=== PATIENT | male | born 1985 | race Caucasian/White ===

== ENCOUNTER 2022-09-09 15:11 | Emergency (ER) | payer OTHER, SELFPAY ==
--- NOTE | 2022-09-09 15:24 | ED.URI ---
HPI - URI/Sore Throat General Chief Complaint: Upper Respiratory Infection Stated Complaint: Sore Throat,Headache,Fatigue,Cough Time Seen by Provider: 09/09/22 15:35 Source: patient and RN notes reviewed Mode of arrival: ambulatory Limitations: no limitations History of Present Illness HPI Narrative: 37-year-old male presents with concern for 3-4 day history of nasal congestion, sore throat, headache, cough. He reports his has similar symptoms, she has been sick for 11 days and got an antibiotic today. He thinks he needs an antibiotic. Reports he has taken DayQuil and NyQuil intermittently. MD elicited complaint: cough and sore throat Related Data Home Medications Medication Instructions Recorded Confirmed fluoxetine 40 mg capsule 40 mg PO DAILY 09/09/22 09/09/22 Allergies Allergy/AdvReac Type Severity Reaction Status Date / Time No Known Allergies Allergy Verified 09/09/22 15:20 Review of Systems Review of Systems: CONSTITUTIONAL: Report malaise, fatigue. Denies chills, sweats, or fever. EYES: Denies visual changes, redness, or discharge. ENT: Reports rhinorrhea, congestion, sore throat. Denies sinus pain, otalgia CARDIOVASCULAR: Denies chest pain, palpitations, or edema. RESPIRATORY: Reports cough. Denies dyspnea. GASTROINTESTINAL: Denies abdominal pain, nausea, vomiting, diarrhea SKIN: Denies rash or itching. MUSCULOSKELETAL: Denies myalgia. NEUROLOGIC: Denies headache. All systems reviewed & are unremarkable except as noted in HPI and below PMFSH Comments At time of signature, agree with nursing past medical, surgical, social and family history. There is no relevant family history pertinent to the presenting complaint Exam Narrative: GENERAL: Nontoxic-appearing and in no acute distress. HEAD: Normocephalic EYES: PERRLA, conjunctivae clear ENT: Nares clear, turbinates edematous and erythematous, clear discharge. Mucous membranes moist. TM pearly trejo with dull light reflex bilaterally; no tragal tenderness. Oropharynx not erythematous without lesions. Tonsils not enlarged and without exudate, no drooling, no hoarseness, no trismus, uvula midline. NECK: Supple. No lymphadenopathy CHEST: Clear to auscultation, breath sounds equal. No wheezing, rhonchi, rales, or stridor. No respiratory distress, speaks in full sentences. HEART: Regular rate and rhythm. No murmur heard. SKIN: Warm, dry, no rash. NEURO: Alert and oriented x3. PSYCH: Normal mood and affect Course Course Emergency Course: Patient is aware of diagnosis, understands and agrees to treatment plan. Anticipatory guidance given. Patient agrees to follow-up as directed and is aware of reasons to seek care at the emergency department. Portions of this record may have been created with voice recognition software Level of Care: Express Care Visit Vital Signs Vital signs: Reviewed. MDM - URI/Sore Throat MDM Narrative Medical decision making narrative: Differential diagnosis considered: Dumont virus, strep pharyngitis, allergic rhinitis, upper respiratory tract infection, sinusitis, rhinosinusitis, nasopharyngitis. viral pharyngitis, otitis media, otitis externa, pneumonia, bronchitis, viral cough syndrome, viral syndrome, and influenza. Exam findings show no acute concerns or changes; patient is non-toxic appearing and is in no distress. Patient is appropriate for outpatient treatment and follow-up. Lab Data Attestation: I reviewed the patient's lab results. Critical Care Time Critical Care Time Critical Care Time: No Discharge Plan Discharge Clinical Impression: Upper respiratory infection with cough and congestion Patient Disposition: Home, Self-Care Condition: Stable Instructions: Upper Respiratory Infection (ED) Additional Instructions: Your rapid strep swab was negative today at [facility]. A throat culture will be sent to the laboratory for further testing. If the test is positive, you will receive a phone call with
[2022-09-09 15:27] VITALS: BP 137/100; PULSE 87; RESP 16; TEMP 36.4; O2SAT 99
== END 2022-09-09 16:00 | disposition home or self-care (01) ==
PROVIDERS: Emergency Provider Nurse Practitioner
DX: J06.9 Acute upper respiratory infection, unspecified (principal)
CPT/HCPCS: 87081; 87880; 99203; G0463

== ENCOUNTER 2025-06-10 19:18 | Emergency (ER) | payer BC, SELFPAY ==
--- NOTE | ~2025-06-10 | XR_ITS ---
EXAMINATION: XR hand LT min 3V DATE: 06/10/2025 19:47 INDICATION: Laceration to third and fourth fingers. TECHNIQUE: Views of left hand were obtained. COMPARISON: None. FINDINGS: Severe soft tissue laceration of the third and fourth fingers are noted. Fracture of the distal phalanx of third finger. No other fractures are visible, although visualization is limited by extraneous artifacts. IMPRESSION: 1. Fracture distal phalanx third finger. 2. Significant soft tissue trauma to the third and fourth fingers. Reviewed, dictated and finalized at location T. CAL TECHNOLOGIST HEMATOLOGY
--- OUTSIDE RECORDS SUMMARY | 2025-06-10 19:21 | XMS_ITS | Clinical Summary ---
Author Organization [facility] Address [address] [place] [address] Support Name Relationship Address Phone Tammi Drake ([facility]ly [facility]) Spouse [address] [place] [address] [address] Prov[address] Care [address] Shaft And Steering Post Repairer Name Role Phone Jannet Escobedo MD, Jose Mackeyodore Primary Care Provider Source Comments [facility],non-owned Affiliates and Associated Physician Practices is amultiple site organization consisting of ambulatory clinics and hospital sitesin [place], [place], [place] and [place]. This disclosure is being madepursuant to the Care Everywhere program and may not contain all information available regarding this patient. Last updated 18.[facility] Allergies No known active allergies Medications * This document contains information received from the source organization and may not represent a complete record from that organization. * Be aware that medications may not be up to date on this document. Alwaysverify current medications with the patient. albuterol HFA (Proventil; Ventolin; Proair) 108 (90 Base) MCG/ACT inhalerIndicati ons:Asthma Inhale 2 (two) puffs by mouth every 6 hours as needed for Shortness of Breath, Wheezing or Cough Reasons: Asthma 48 g 4 4 Active mometasone (Elocon) 0.1 % cream Apply to affected area once daily 45 g 4 Active Fluticasone Furoate (Arnuity Ellipta) 50 MCG/ACT AEPB INHALE 1 PUFF BY MOUTH DAILY 90 Each 2 4 Active FLUoxetine (PROzac) 40 MG capsule TAKE 1 CAPSULE BY MOUTH DAILY 90 capsule 2 5 Active buPROPion XL 24hr (Wellbutrin-XL) 300 MG tabletIndicatio ns:Moderate episode of recurrent major depressive disorder (HCC),Generaliz ed anxiety disorder,Inatte ntion Take 1 (one) tablet by mouth once daily 90 tablet 1 5 Active buPROPion XL 24hr (Wellbutrin-XL) 150 MG tabletIndicatio ns:Moderate episode of recurrent major depressive disorder (HCC),Generaliz ed anxiety disorder Take 1 (one) tablet by mouth once daily 30 tablet 1 5 06/02/20 25 Discontinu ed(Reorder ) Active Problems Problem Noted Date Diagnosed Date 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 Silva Routine general medical exam ination at a health care facility 03/28/2023 Assessment & Plan (03/26/2024 9:50 AM CDT): - The patient is advised to begin progressive daily aerobic exercise program, follow a low fat, low cholesterol diet, continue current medications, continue current healthy lifestyle patterns and return for routine annual checkups. Assessment & Plan (03/28/2023 8:40 AM CDT): - The patient is advised to begin progressive daily aerobic exercise program, follow a low fat, low cholesterol diet, continue current medications, continue current healthy lifestyle patterns and return for routine annual checkups. Alcohol use disorder, moderate, in sustained rem ission 06/27/2017 Assessment & Plan (10/23/2023 9:25 AM CDT): In remission, doing well - Continue to avoid EtOH Assessment & Plan (03/28/2023 8:42 AM CDT): Applaud continued cessation Assessment & Plan (03/29/2022 11:23 AM CDT): Controlled, - Applaud continued cessation - AA Assessment & Plan (03/31/2021 3:01 PM CDT): Controlled, going to AA, Feeling good. - Ok to stop Naltrexone if pt wishes (pt request). Rx sent in just in case pt wishes to restart. - AA Anxiety disorder 06/27/2017 Assessment & Plan (06/02/2025 9:05 AM DENTAL TECHNICIAN INSTRUCTOR): Stable Continue prozac 40 mg qd Tolerating bupropion w/o s/e - will increase to 300 mg qd Encourage well-balanced diet, adequate sleep, stress reduction, relaxation techniques, and getting regular physical exercise. Orders: buPROPion XL 24hr (Wellbutrin-XL) 300 MG tablet; Take 1 (one) tablet by mouth once daily Assessment & Plan (04/16/2025 9:07 AM CDT): Uncontrolled. Did not see benefit with increase of prozac to 60 mg daily. Has been taking prozac 40 mg qd, will add bupropion 150 mg daily Encourage well-balanced diet, adequate sleep, stress reduction, relaxation techniques, and getting regular physical exercise. Orders: buPROPion XL 24hr (Wellbutrin-XL) 150 MG tablet; Take 1 (one) tablet by mouth once daily Assessment & Plan (03/26/2024 9:51 AM CDT): Uncontrolled - Increase Prozac Assessment & Plan (03/28/2023 8:42 AM CDT): Controlled - Continue Prozac Assessment & Plan (03/29/2022 11:22 AM CDT): Stable - Continue Prozac - Offered wellbutrin for sexual dysfx Asthma Assessment & Plan (04/16/2025 9:07 AM CDT): Has been controlled. Not taking Arnuity Continue albuterol PRN Monitor and notify for new or worsening resp symptoms Assessment & Plan (03/26/2024 9:51 AM CDT): Uncontrolled - Albuterol PRN - Arnuity Ellipta QD Assessment & Plan (03/28/2023 8:42 AM CDT): Stable - Albuterol Assessment & Plan (08/08/2022 4:27 PM DENTAL TECHNICIAN INSTRUCTOR): albuterol Assessment & Plan (03/29/2022 11:23 AM CDT): Stable - albuterol PRN Assessment & Plan (03/31/2021 3:01 PM CDT): Controlled - Albuterol PRN Recurrent major depressive disorder, in full rem ission Assessment & Plan (04/16/2025 9:07 AM CDT): Uncontrolled. Did not see benefit with increase of prozac to 60 mg daily. Has been taking prozac 40 mg qd, will add bupropion 150 mg daily Encourage well-balanced diet, adequate sleep, stress reduction, relaxation techniques, and getting regular physical exercise. Orders: buPROPion XL 24hr (Wellbutrin-XL) 150 MG tablet; Take 1 (one) tablet by mouth once daily Assessment & Plan (03/26/2024 9:51 AM CDT): Uncontrolled - Increase Prozac Assessment & Plan (03/28/2023 8:42 AM CDT): Controlled - Continue Prozac Assessment & Plan (08/08/2022 4:27 PM DENTAL TECHNICIAN INSTRUCTOR): Pt on Prozac Assessment & Plan (03/29/2022 11:23 AM CDT): Stable - Continue Prozac - Offered wellbutrin for sexual dysfx Assessment & Plan (03/31/2021 3:01 PM CDT): Controlled - Continue Prozac 40mg QD - Continue AA Resolved Problems Problem Noted Date Diagnosed Date Resolved Date Chest tightness 10/23/2023 03/26/2024 Assessment & Plan (10/23/2023 9:25 AM CDT): Suspect asthma, but need to r/o other causes (obstructive causes) - Albuterol - CXR - Prednisone if XR negative Anxiety 08/14/2018 Bipolar 1 disorder Overview (03/31/2021): Hx in doubt. No breakthrough w/ Prozac Encounters * This document contains information received from the source organization and may not represent a complete record from that organization. Date Type Department Care Team Description 06/03/2025 Results Follow-Up [address] [address] Nati Syed APRN-CNP 06/02/2025 8:40 AM DENTAL TECHNICIAN INSTRUCTOR Office Visit [address] [address] Nati Syed APRN-CNP Moderate episode of recurrent major depressive disorder (HCC) (Primary Dx); Generalized anxiety disorder; Inattention 05/01/2025 Travel 04/16/2025 8:20 AM CDT Office Visit [address] [address] Nati Syed APRN-CNP Routine general medical examination at health care facility (Primary Dx); Moderate episode of recurrent major depressive disorder (HCC); Generalized anxiety disorder; Mild intermittent asthma without complication (HCC); Inattention; Hypertriglyceridemia; MSH6-related Mcguire syndrome (HNPCC5) from Last 3 Months Immunizations Immunization Administration Dates Next Due Dedicated Devices primary monoval ent 12+ yr 0.3mL Purple cap 06/26/2021,09/08/2020,08/18/2020 DTP 01/01/1992, 8,1986,1986,1986 INFLUENZA VACCINE, QUADR. (F LUZONE; FLULAVAL; FLUARIX; AFLURIA QUADRIVALENT; 6MO+), 0.5 ML (IIV4) 03/31/2021 MMR 01/01/1992,09/16/1987 PNEUMOCOCCAL PCV20 CONJ VAC IM 03/29/2022,2021 PNEUMOCOCCAL PPSV23 11/06/2018 POLIO OPV 01/01/1992, 8,1986,1985 TDAP (7yrs+) 11/06/2018 Family History Medical History Relation Name Comments Alcohol abuse Father Cancer - Breast Maternal Aunt Cancer - Breast Maternal Cousin 1 Other - Genetic Maternal Cousin 1 Other - Gastrointestinal Maternal Cousin 2 rectal Other - Genetic Maternal Cousin 2 Cancer - Bladder Maternal Grandfather Cancer - Renal Maternal Grandfather Other - Genetic Maternal Grandfather CAD (Coronary Artery Disease) Maternal Grandmother Other - Genetic Mother MSH6 deletio n Alcohol abuse Paternal Grandfather Cancer - Other Paternal Grandmother Alcohol abuse Sister Other - Genetic Sister MSH6 Negative Family History Neg Hx Relation Name Status Comments Brother Alive Father Alive Maternal Aunt Alive Maternal Cousin 1 Alive Maternal Cousin 2 Alive Maternal Grandfather Maternal Grandmother Mother Alive Paternal Grandfather Paternal Grandmother Sister Alive Social History Tobacco Use Types Packs/Day Years Used Date Smoking Tobacco: Former Cigarettes Smokeless Tobacco: Never Alcohol Use Standard Drinks/Week Comments Not Currently 0 (1 standard drink = 0.6 oz pur e alcohol) PHQ-2 Answer Date Recorded Patient Health Questionnaire-2 Score 2 06/02/2025 Sex and Gender Information Value Date Recorded Sex Assigned at Not on file Legal Sex Male 6:17 AM DENTAL TECHNICIAN INSTRUCTOR Gender Identity Not on file Sexual Orientation Straight 11/26/2021 1: 27 PM CDT Occupation Industry Job Start Date Job End Date sales Not on file Not on file Not on file Last Filed Vital Signs Vital Sign Reading Time Taken Comments Blood Pressure 122/78 06/02/2025 8:41 AM DENTAL TECHNICIAN INSTRUCTOR Pulse 76 06/02/2025 8:41 AM DENTAL TECHNICIAN INSTRUCTOR Temperature 36.1 C (97 F) 12/16/2024 7:11 AM CDT Respiratory Rate 19 12/16/2024 8:35 AM CDT Oxygen Saturation 97% 06/02/2025 8:41 AM DENTAL TECHNICIAN INSTRUCTOR Inhaled Oxygen Concentration - - Weight 96.3 kg (212 lb 6.4 oz) 06/02/2025 8:41 A M DENTAL TECHNICIAN INSTRUCTOR Height 182.9 cm (6') 06/02/2025 8:41 AM DENTAL TECHNICIAN INSTRUCTOR Body Mass Index 28.81 06/02/2025 8:41 AM DENTAL TECHNICIAN INSTRUCTOR Plan of Treatment Upcoming Encounters Date Type Department Care Team (Late st Contact Info) Description 09/02/2025 9:40 AM DENTAL TECHNICIAN INSTRUCTOR Office Visit [facility] - Family Medicine [address] [place] [address] Nati Syed, LABORATORY INSPECTOR-MERCHANDISE BUYER [address] [place] [address] Health Maintenance Due Date Last Done Comments COLOGUARD (AGES 45-75) - COLON CA SCREENING 1986 CT COLONOGRAPHY - COLON CA SCREENING 1986 FIT - COLON CA SCREENING 1986 FLEX SIG - COLON CA SCREENING 1986 HEPATITIS B VACCINE (1 of 3 - 19+ 3-dose series) 2005 HPV VACCINE (1 - 3-dose SCDM series) 2013 COVID-19 VACCINE ( season) 2025 06/26/2021, 09/08/2020, 08/18/2020 INFLUENZA VACCINE (#1) 2025 03/31/2021 EGD SURVEILLANCE 10/23/2025 10/24/2023, 10/24/2023 COLON MONITORING 12/16/2025 12/16/2024, 08/2024, 12/16/2024, Additional history exists Colorectal Cancer Screening 12/16/2025 DTAP/TDAP/TD VACCINES (7 - Td or Tdap) 11/06/2028 11/06/2018, 01/01/1992, 09/16/1987, Additional history exists COLONOSCOPY - COLON CA SCREENING 12/16/2034 12/16/2024, 12/16/2024, 12/16/2024, Additional history exists ZOSTER VACCINE (1 of 2) 2036 HIV SCREENING Completed 05/09/2017 PNEUMOCOCCAL VACCINE Completed 03/29/2022, 03/29/2022, 11/06/2018 HEPATITIS C SCREENING Completed 03/28/2023 DEPRESSION SCREENING Completed 12/12/2024, 10/23/2023, 10/23/2023, Additional history exists HIB VACCINE Aged Out No longer eligi ble based on patient's age to complete this topic MENINGOCOCCAL (Group B) VACCINE SHARED DECISION-MAKING Aged Out No longer eligible based on patient's age to complete this topic MENINGOCOCCAL GROUPS A/C/Y/W VACCINE Aged Out No longer eligible based on patient's age to complete this topic Procedures Procedure Name Priority Date/Time Associated Diagnosis Comments CBC W AUTO DIFFERENTIAL Routine 06/02/2025 9:06 AM DENTAL TECHNICIAN INSTRUCTOR Hypertriglyceridemi a TSH REFLEX FREE T4 Routine 06/02/2025 9: 06 AM DENTAL TECHNICIAN INSTRUCTOR Hypertriglyceridemi a HEMOGLOBIN A1C Routine 06/02/2025 9:06 AM DENTAL TECHNICIAN INSTRUCTOR Hypertriglyceridemi a LIPID PROFILE Routine 06/02/2025 9:06 AM DENTAL TECHNICIAN INSTRUCTOR Hypertriglyceridemi a COMPREHENSIVE METABOLIC PANEL Routine 06/02/2025 9:06 AM DENTAL TECHNICIAN INSTRUCTOR Hypertriglyceridemi a ENDOSCOPY, COLON, DIAGNOSTIC Routine 12/16/2024 7:05 AM CDT Mcguire syndrome EGD Routine 10/24/2023 12:43 PM CDT Mcguire syndrome HEPATITIS C ANTIBODY Routine 03/28/2023 8:51 AM CDT Screening examination for infectious disease HIV-1 HIV-2 ANTIGEN/ANTIBODY W RFLX Routine 05/09/2017 11:05 AM CDT Abscess, gluteal, left from Last 3 Months or Most Recently Relevant to Health Maintenance Results * TSH REFLEX FREE T4 (06/02/2025 9:06 AM DENTAL TECHNICIAN INSTRUCTOR) TSH 1.255 0.350 - 4.940 uIU/mL [facility] ACCOUNT BILL Blood BLOOD SPECIMEN / Unknown 06/02/2025 9:06 AM DENTAL TECHNICIAN INSTRUCTOR 06/02/2025 Narrative [facility] ACCOUNT BILL - 06/02/2025 5:09 PM DENTAL TECHNICIAN INSTRUCTOR Performed at: [address] [place] [id number] Director Of Product Design: Marquis Azul [address], Phone: [phone] us Nati Syed LABORATORY INSPECTOR-MERCHANDISE BUYER LAB - CHEMISTRY ORDERA BLES Final Result [facility] ACCOUNT BILL [address] [place] [address] * HEMOGLOBIN A1C (06/02/2025 9:06 AM DENTAL TECHNICIAN INSTRUCTOR) [facility] Hemoglobin A1c 5.4 <5.7 % [facility] ACCOUNT BILL Comment: AVERAGE GLUCOSE MG/DL BLOOD 108 mg/dL HbA1c Interpretation: Normal: < 5.7% Pre-diabetes: 5.7-6.4% Diabetes: Equal to or greater than 6.5% Test results diagnostic of diabetes should be repeated for c onfirmation. Treatment target values recommended by ADA and other clinica l organizations should be used to evaluate metabolic control in patients. This test should not replace glucose testing for patients wi th Type 1 diabetes, pediatric patients, or women. Falsely low HbA1c results may be observed in patients with c linical conditions that shorten erythrocyte life span or dec rease mean erythrocyte age such as the presence of unstable hemoglobin variants, elevated hemoglobin F level or other ca uses of hemolytic anemia. HbA1c may not accurately reflect glycemic control when clinical conditions that affect erythr ocyte survival are present. Severe Iron deficiency anemia m ay yield falsely high results. Hemoglobin A1c assay should not be used to diagnose or monitor diabetes in patients with malignancy, recent blood transfusion, chronic kidney or essie er disease. This method may yield falsely low results when hemoglobin (HbF) exceeds 5% in the specimen. The CellARidenity assay for the measurement of HbA1c is a [facility] Glycohemoglobin Standardization Program (NGSP) certi fied method. Blood BLOOD SPECIMEN / Unknown 06/02/2025 9:06 AM DENTAL TECHNICIAN INSTRUCTOR 06/02/2025 Narrative [facility] ACCOUNT BILL - 06/02/2025 5:09 PM DENTAL TECHNICIAN INSTRUCTOR Performed at: 01 - [facility] [address] [place], [place] [id number] Director Of Product Design: Marquis Azul Dr, Phone: [phone] us Nati Chambers Kunal LABORATORY INSPECTOR-MERCHANDISE BUYER LAB - CHEMISTRY ORDERA BLES Final Result [facility] ACCOUNT BILL [address] [place] [address] * CBC WITH DIFFERENTIAL (06/02/2025 9:06 AM DENTAL TECHNICIAN INSTRUCTOR) WBC 7.4 4.0 - 10.7 x10E9/L [facility] ACCOUNT BILL RBC 4.89 4.30 - 5.80 x10E12/L [facility] ACCOUNT BILL Hemoglobin 14.6 13.3 - 17.5 g/dL [facility] ACCOUNT BILL Hematocrit 42.6 38.7 - 51.1 % [facility] ACCOUNT BILL MCV 87.1 80.0 - 98.0 fL [facility] ACCOUNT BILL MCH 29.9 26.7 - 33.6 pg [facility] ACCOUNT BILL MCHC 34.3 31.7 - 36.3 g/dL [facility] ACCOUNT BILL RDW 12.5 11.3 - 14.8 % [facility] ACCOUNT BILL Platelet Count 249 150 - 420 x10E9/L [facility] ACCOUNT BILL Comment:MPV (CS) 10.6 fL 7.8 -11.4 Granulocytes % 52.7 41.0 - 74.0 % [facility] ACCOUNT BILL Lymphocytes % 32.6 17.0 - 47.0 % [facility] ACCOUNT BILL Monocytes % 7.1 3.0 - 11.0 % [facility] ACCOUNT BILL Eosinophils % 6.0 0.0 - 7.0 % [facility] ACCOUNT BILL Basophils % 0.9 0.0 - 1.6 % [facility] ACCOUNT BILL Granulocytes Absolute 3.89 1.60 - 7.50 x10E9/L [facility] ACCOUNT BILL Lymphocytes Absolute 2.40 1.00 - 4.40 x10E9/L [facility] ACCOUNT BILL Monocytes Absolute 0.52 0.15 - 1.00 x10E9/L [facility] ACCOUNT BILL Eosinophils Absolute 0.44 0.00 - 0.60 x10E9/L [facility] ACCOUNT BILL Basophils Absolute 0.07 0.00 - 0.13 x10E9/L [facility] ACCOUNT BILL Immature Granulocytes 0.7 0.0 - 1.0 % [facility] ACCOUNT BILL Blood BLOOD SPECIMEN / Unknown 06/02/2025 9:06 AM DENTAL TECHNICIAN INSTRUCTOR 06/02/2025 Narrative [facility] ACCOUNT BILL - 06/02/2025 3:10 PM DENTAL TECHNICIAN INSTRUCTOR Performed at: [address] [place] [id number] Director Of Product Design: Marquis Azul Dr, Phone: [phone] us Nati Chambers Syed LABORATORY INSPECTOR-MERCHANDISE BUYER LAB - HEMATOLOGY ORDER ROSIBEL Final Result [facility] ACCOUNT BILL [address] [place] [address] * (ABNORMAL) COMPREHENSIVE METABOLIC PANEL (06/02/2025 9:06 AM DENTAL TECHNICIAN INSTRUCTOR) Glucose 100(H) 70 - 99 mg/dL [facility] ACCOUNT BILL BUN 10 5.3 - 18.7 mg/dL [facility] ACCOUNT BILL Creatinine 1.04 0.60 - 1.20 mg/dL [facility] ACCOUNT BILL eGFR by CKD-EPI >90 >=90 mL/min/1.7 3 m2 [facility] ACCOUNT BILL Comment: Estimated Glomerular Filtration Rate (eGFR) calculated using the CKD-EPI Creatinine Equation (2020), per the National [employer] Foundation and [place]ph[employer] recommend ations. Sodium 140 136 - 145 mmol/L [facility] ACCOUNT BILL Potassium 4.0 3.5 - 5.1 mmol/L [facility] ACCOUNT BILL Chloride 108(H) 98 - 107 mmol/L [facility] ACCOUNT BILL CO2 25 22 - 29 mmol/L [facility] ACCOUNT BILL Calcium 9.0 8.4 - 10.4 mg/dL [facility] ACCOUNT BILL Protein Total 7.2 6.4 - 8.3 gm/dL [facility] ACCOUNT BILL Albumin 4.4 3.1 - 4.5 gm/dL [facility] ACCOUNT BILL Bilirubin Total 0.3 0.2 - 1.2 mg/dL [facility] ACCOUNT BILL Alkaline Phosphatase 109 40 - 150 U/L [facility] ACCOUNT BILL AST 26 10 - 48 U/L [facility] ACCOUNT BILL ALT 34 6 - 57 U/L [facility] ACCOUNT BILL Blood BLOOD SPECIMEN / Unknown 06/02/2025 9:06 AM DENTAL TECHNICIAN INSTRUCTOR 06/02/2025 Narrative [facility] ACCOUNT BILL - 06/02/2025 5:09 PM DENTAL TECHNICIAN INSTRUCTOR Performed at: [address] [place] [id number] Director Of Product Design: Marquis Azul Dr, Phone: [phone] us Natikalpana Chambers Syed LABORATORY INSPECTOR-MERCHANDISE BUYER LAB - CHEMISTRY ORDERA BLES Final Result [facility] ACCOUNT BILL [address] [place] [address] * (ABNORMAL) LIPID PROFILE (06/02/2025 9:06 AM DENTAL TECHNICIAN INSTRUCTOR) Cholesterol 179 <200 mg/dL [facility] ACCOUNT BILL Triglycerides 220(H) <150 mg/dL [facility] ACCOUNT BILL HDL Cholesterol 30(L) >40 mg/dL [facility] ACCOUNT BILL VLDL Calculated 44(H) <=30 mg/dL [facility] ACCOUNT BILL LDL Calculated 105 <130 mg/dL [facility] ACCOUNT BILL Comment:LDL is calculated us ing the Friedewald equation. Blood BLOOD SPECIMEN / Unknown 06/02/2025 9:06 AM DENTAL TECHNICIAN INSTRUCTOR 06/02/2025 Narrative [facility] ACCOUNT BILL - 06/02/2025 5:09 PM DENTAL TECHNICIAN INSTRUCTOR Performed at: [address] [place] [id number] Director Of Product Design: Marquis Azul Dr, Phone: [phone] us Natikalpana Harrisonmartell Armstrongn LABORATORY INSPECTOR-MERCHANDISE BUYER LAB - CHEMISTRY ORDERA BLES Final Result Performing Organization Address City/[facility]/ZIP Co de Phone Number [facility] ACCOUNT BILL [address] [place] [address] * Endoscopy, Colon, Diagnostic (12/16/2024 7:05 AM CDT) Report Endoscopy POC _ Patient Name: Mauro Drake Procedure Date: 12/16/2024 7:05 AM Date of : 1985 Admit Type: Outpatient Age: 39 Gender: Male Ethnicity: Not or Race: White Attending MD: Gaudencio Silva MD, [id number] _ Procedure: Colonoscopy Indications: Mcguire Syndrome Providers: Gaudencio Silva MD (Doctor), Maya Granados RN, Shantell Young RN Patient Profile: 39M presents for high risk screening. last exam last year Referring MD: Jose Power (Referring MD) Medicines: Monitored Anesthesia Care Complications: No immediate complications. _ Estimated Blood Loss: Estimated blood loss was minimal. Procedure: Pre-Anesthesia Assessment: - Prior to the procedure, a History and Physical was performed, and patient medications and allergies were reviewed. The patient's tolerance of previous anesthesia was also reviewed. The risks and benefits of the procedure and the sedation options and risks were discussed with the patient. All questions were answered, and informed consent was obtained. Prior Anticoagulants: The patient has taken no anticoagulant or antiplatelet agents. ASA Grade Assessment: II - A patient with mild systemic disease. After reviewing the risks and benefits, the patient was deemed in satisfactory condition to undergo the procedure. After I obtained informed consent, the scope was passed under direct vision. Throughout the procedure, the patient's blood pressure, pulse, and oxygen saturations were monitored continuously. The Colonoscope was introduced through the anus and advanced to the cecum, identified by appendiceal orifice and ileocecal valve. The colonoscopy was performed without difficulty. The patient tolerated the procedure well. The quality of the bowel preparation was fair. The ileocecal valve, appendiceal orifice, and rectum were photographed. Impression: - Preparation of the colon was fair. - One 8 mm polyp in the proximal descending colon, removed with a cold snare. Resected and retrieved. - The examination was otherwise normal on direct and retroflexion views. Findings: The perianal and digital rectal examinations were normal. An 8 mm polyp was found in the proximal descending colon. The polyp was sessile. The polyp was removed with a cold snare. Resection and retrieval were complete. The exam was otherwise without abnormality on direct and retroflexion views. _ Recommendation: - Patient has a contact number available for emergencies. The signs and symptoms of potential delayed complications were discussed with the patient. Return to normal activities tomorrow. Written discharge instructions were provided to the patient. - Resume previous diet. - Repeat colonoscopy/EGD in 1 year for surveillance based on pathology results. Derm as scheduled Procedure Code(s): --- Professional --- 92315, Colonoscopy, flexible; with removal of tumor(s), polyp(s), or other lesion(s) by snare technique --- Technical --- 52758, Colonoscopy, flexible; with removal of tumor(s), polyp(s), or other lesion(s) by snare technique Diagnosis Code(s): --- Professional --- D12.4, Benign neoplasm of descending colon Z15.09, Genetic susceptibility to other malignant neoplasm --- Technical --- D12.4, Benign neoplasm of descending colon Z15.09, Genetic susceptibility to other malignant neoplasm CPT copyright 2020 [employer]. All rights reserved. The codes documented in this report are preliminary and upon floral decorator review may be revised to meet current compliance requirements. Gaudencio Silva MD 12/16/2024 7:45:59 AM This report has been signed electronically. Number of Addenda: 0 Note Initiated On: 12/16/2024 7:05 AM [facility] ENDOSCOPY 12/16/2024 7:05 AM CDT Narrative Procedure Note Gaudencio Silva MD - 12/16/2024 7:47 AM CDT Colonoscopy Desc colon polyp/adenoma resected Rpt 1 yr with EGD Derm as scheduled D/w Mauro us Gaudencio Silva MD GI PROCEDURE ORDERABLES Edited R esult - Final [facility] ENDOSCOPY * EGD (10/24/2023 12:43 PM CDT) Report Endoscopy POC __ _ Patient Name: Mauro Drake Procedure Date: 10/24/2023 12:43 PM Date of : 1985 Admit Type: Outpatient Age: 38 Gender: Male Ethnicity: Not or Race: White Attending MD: Gaudencio Silva MD, [id number] __ _ Procedure: Upper GI endoscopy Indications: Screening procedure Providers: Gaudencio Silva MD (Doctor), Kera Spence RN, Estela David, STEVEN, Maya Granados, STEVEN, Pauline Dewitt, College President Patient Profile: 38M presents for screening for Mcguire Syndrome Referring MD: Jose Power Jr., MD (Referring MD) Medicines: Monitored Anesthesia Care Complications: No immediate complications. __ _ Estimated Blood Loss: Estimated blood loss: none. Procedure: Pre-Anesthesia Assessment: - Prior to the procedure, a History and Physical was performed, and patient medications and allergies were reviewed. The patient's tolerance of previous anesthesia was also reviewed. The risks and benefits of the procedure and the sedation options and risks were discussed with the patient. All questions were answered, and informed consent was obtained. Prior Anticoagulants: The patient has taken no anticoagulant or antiplatelet agents. ASA Grade Assessment: II - A patient with mild systemic disease. After reviewing the risks and benefits, the patient was deemed in satisfactory condition to undergo the procedure. After obtaining informed consent, the endoscope was passed under direct vision. Throughout the procedure, the patient's blood pressure, pulse, and oxygen saturations were monitored continuously. The Endoscope was introduced through the mouth, and advanced to the second part of duodenum. The upper GI endoscopy was accomplished without difficulty. The patient tolerated the procedure well. Impression: - Normal esophagus. - Normal stomach. - Normal examined duodenum. - No specimens collected. Findings: The examined esophagus was normal. The entire examined stomach was normal. The examined duodenum was normal. __ _ Recommendation: - Patient has a contact number available for emergencies. The signs and symptoms of potential delayed complications were discussed with the patient. Return to normal activities tomorrow. Written discharge instructions were provided to the patient. - Resume previous diet. - Repeat upper endoscopy in 2 years for surveillance. Procedure Code(s): --- Professional --- 36567, Esophagogastroduode noscopy, flexible, transoral; diagnostic, including collection of specimen(s) by brushing or washing, when performed (separate procedure) --- Technical --- 29191, Esophagogastroduode noscopy, flexible, transoral; diagnostic, including collection of specimen(s) by brushing or washing, when performed (separate procedure) Diagnosis Code(s): --- Professional --- Z13.810, Encounter for screening for upper gastrointestinal disorder --- Technical --- Z13.810, Encounter for screening for upper gastrointestinal disorder CPT copyright 2020 [employer]. All rights reserved. The codes documented in this report are preliminary and upon floral decorator review may be revised to meet current compliance requirements. Gaudencio Silva MD 10/24/2023 1:22:10 PM This report has been signed electronically. Number of Addenda: 0 Note Initiated On: 10/24/2023 12:43 PM [facility] 10/24/2023 12:4 3 PM CDT Narrative Procedure Note Gaudencio Silva MD - 10/24/2023 1:22 PM CDT Normal EGD Rpt 2 yrs Proceed to colon us Gaudencio Silva MD GI PROCEDURE ORDERABLES Edited R esult - Final [facility] * HEPATITIS C ANTIBODY (03/28/2023 8:51 AM CDT) Hepatitis C Antibody Non Reactive Non Reactive [facility] ACCOUNT BILL Comment: Non Reactive - Antibodies to Hepatitis C virus (HCV) were no t detected, result does not exclude early acute HCV infection. Blood BLOOD SPECIMEN / Unknown 03/28/2023 8:51 AM CDT 03/28/2023 Narrative Resulting Agency Comment Lab Testing performed at: [facility] [address] [facility] [id number] us Jose Power Jr., MD LAB - CHEMISTR Y ORDERABLES Final Result [facility] ACCOUNT BILL [address] [place] [address] * HIV-1 HIV-2 ANTIGEN/ANTIBODY W RFLX (05/09/2017 11:05 AM CDT) HIV Screen 4th Generation w Reflex Non Reactive Non Reactive [facility] ACCOUNT BILL Blood BLOOD SPECIMEN / Unknown 05/09/2017 11:05 AM CDT 05/09/2017 Narrative Resulting Agency Comment [facility] [address] [facility] [id number] us Jose Power Jr., MD LAB - SEROLOGY ORDERABLES Final Result Performing Organization Address [facility] de Phone Number [facility] ACCOUNT BILL [address] [place] [address] from Last 3 Months or Most Recently Relevant to Health Maintenance Additional Health Concerns Infection Onset Date Last Indicated MRSA Hx Comment:Wound culture 04/30/2017 11/01/2022 Insurance [facility] Care Teams Drive Shaft And Steering Post Repairer Relationship Specialty Start Date End Date Jose Power Jr., MD PCP - General Family Medicine 05/09/17
--- OUTSIDE RECORDS SUMMARY | 2025-06-10 19:21 | XMS_ITS | Clinical Summary ---
Author Organization [facility] Address [address] [place] [address] Phone Care Team Providers Care Border Police Name Role Phone Jannet Escobedo MD, Jose Chow Primary Care Provider Allergies No known active allergies Medications FLUoxetine (PROZAC) 40 MG Capsule Take 40 mg by mouth. 11/06/2018 Active naltrexone (DEPADE) 50 MG Tablet Take 50 mg by mouth. 03/25/2019 Active Active Problems No known active problems Social History Tobacco Use Types Packs/Day Years Used Date Smoking Tobacco: Former Smokeless Tobacco: Never Alcohol Use Standard Drinks/Week Comments Yes 28 (1 standard drink = 0.6 oz pu re alcohol) Sex and Gender Information Value Date Recorded Sex Assigned at Not on file Legal Sex Male 5:31 PM POLISHER BRASS Gender Identity Not on file Sexual Orientation Not on file Last Filed Vital Signs Vital Sign Reading Time Taken Comments Blood Pressure 127/80 06/28/2021 8:44 PM POLISHER BRASS Pulse 69 06/28/2021 8:44 PM POLISHER BRASS Temperature 35.6 C (96.1 F) 06/28/2021 8:44 PM POLISHER BRASS Respiratory Rate 18 06/28/2021 8:44 PM POLISHER BRASS Oxygen Saturation 95% 06/28/2021 8:44 PM POLISHER BRASS Inhaled Oxygen Concentration - - Weight 88.5 kg (195 lb) 06/28/2021 5:00 PM POLISHER BRASS Height 182.9 cm (6') 06/28/2021 5:00 PM POLISHER BRASS Body Mass Index 26.45 06/28/2021 5:00 PM POLISHER BRASS Plan of Treatment Health Maintenance Due Date Last Done Comments Hepatitis C Virus (HCV) Screening 1986 Varicella Immunization (1 of 2 - 13+ 2-dose series) 1999 Hepatitis B Immunization (1 of 3 - 19+ 3-dose series) 2005 Human Papillomavirus (HPV) Immunization (1 - 3-dose SCDM series) 2013 Influenza Immunization (#1) 2025 03/31/2021 SARS-COV-2 Immunization ( season) 2025 06/26/2021, 09/08/2020, 08/18/2020 Respiratory Syncytial Virus (RSV) Immunization (Adult) (1 - 1-dose 75+ series) 2061 DTaP/Tdap/Td Immunization Discontinued 2018, 01/01/1992, 09/16/1987, Additional history exists Pneumococcal Immunization Combined Aged Out 11/06/2018 No longer eligible based on patient's age to complete this topic TdaP Immunization Completed 11/06/2018 Meningococcal Immunization (ACWY) Aged Out No longer eligible based on patient's age to complete this topic Rotavirus Immunization Aged Out No lo nger eligible based on patient's age to complete this topic Care Teams Border Police Relationship Specialty Start Date End Date Jose Power Jr., MD PCP - General Family Medicine 06/28/21
--- OUTSIDE RECORDS SUMMARY | 2025-06-10 19:21 | XMS_ITS | Encounter Summary ---
Author Organization [facility] Address [address] [address] Support Name Relationship Address Phone Tammi Darke ([facility]) Spouse [address] [place] [address] Care Team Providers Care Pharmacist Assistant Name Role Phone Jannet Escobedo MD, Jose Chow Primary Care Provider Encounter Details Date Type Department Care Team (Late st Contact Info) Description 06/03/2025 Results Follow-Up [facility] - Family Medicine [address] [place] [address] Nati Syed, YVONNE-SENIOR PROPERTY MANAGER [address] [place] [address] Social History Tobacco Use Types Packs/Day Years Used Date Smoking Tobacco: Former Cigarettes Smokeless Tobacco: Never Alcohol Use Standard Drinks/Week Comments Not Currently 0 (1 standard drink = 0.6 oz pur e alcohol) PHQ-2 Answer Date Recorded Patient Health Questionnaire-2 Score 2 06/02/2025 Sex and Gender Information Value Date Recorded Sex Assigned at Not on file Legal Sex Male 6:17 AM GRAIN UNLOADER Gender Identity Not on file Sexual Orientation Straight 11/26/2021 1: 27 PM CDT Occupation Industry Job Start Date Job End Date sales Not on file Not on file Not on file documented as of this encounter Functional Status * Is person deaf or have serious hearing difficulty? Answer Date of Assessment Author No 11/01/2022 12:08 PM CDT Adkins-Wri Uyen mcdonald RN * Is person blind or have serious difficulty seeing? Answer Date of Assessment Author No 11/01/2022 12:08 PM CDT Adkins-Wri Uyen mcdonald RN * Does person have serious difficulty walking/climbing stairs? Answer Date of Assessment Author No 11/01/2022 12:08 PM CDT Adkins-Wri Uyen mcdonald RN * Does person have difficulty dressing/bathing? Answer Date of Assessment Author No 11/01/2022 12:08 PM CDT Adkins-Wri Uyen mcdonald RN * Does person have difficulty doing errands alone? Answer Date of Assessment Author No 11/01/2022 12:08 PM CDT Adkins-Wri Uyen mcdonald RN documented as of this encounter Mental Status * Does person have difficulty concentrating/remembering/making decisions? Answer Entry Date Author No 11/01/2022 12:08 PM RICCO Molin[place]-WrUyen marcus RN documented in this encounter Plan of Treatment Upcoming Encounters Date Type Department Care Team (Late st Contact Info) Description 09/02/2025 9:40 AM GRAIN UNLOADER Office Visit [facility] Family Medicine [address] [place] [address] Nati Syed, YVONNE[place] [id number] [place] [address] documented as of this encounter Visit Diagnoses Not on filedocumented in this encounter Additional Health Concerns Infection Onset Date Last Indicated Resolved Time MRSA Hx Comment:Wound culture 04/30/2017 11/01/2022 documented as of this encounter Care Teams Pharmacist Assistant Relationship Specialty Start Date End Date Jose Power Jr., MD PCP - General Family Medicine 05/09/17 documented as of this encounter
--- OUTSIDE RECORDS SUMMARY | 2025-06-10 19:21 | XMS_ITS | Clinical Summary ---
Author Organization [address] Address [address] [address] Care Team Providers Care Deputy County Attorney Name Role Phone No, Physician Primary Care Provider [phone] Allergies No known active allergies Medications FLUoxetine (PROzac) 20 mg capsule Take 1 capsule (20 mg total) by mouth daily 03/26/2024 Active FLUoxetine (PROzac) 40 mg capsule Take 1 capsule (40 mg total) by mouth daily 11/06/2018 Active albuterol HFA (PROVENTIL HFA,VENTOLIN HFA,PROAIR HFA) 90 mcg/actuation inhaler Inhale 2 puffs every 6 (six) hours as needed 03/26/2024 Active Active Problems No known active problems Social History Tobacco Use Types Packs/Day Years Used Date Smoking Tobacco: Never Assessed Sex and Gender Information Value Date Recorded Sex Assigned at Not on file Legal Sex Male 11:06 AM LEGAL INSTRUMENTS EXAMINER Gender Identity Not on file Sexual Orientation Not on file Last Filed Vital Signs Vital Sign Reading Time Taken Comments Blood Pressure 132/88 03/03/2025 5:37 PM CDT Pulse 77 03/03/2025 5:37 PM CDT Temperature 36.9 C (98.4 F) 03/03/2025 5:37 PM CDT Respiratory Rate 18 03/03/2025 5:37 PM CDT Oxygen Saturation 96% 03/03/2025 5:37 PM CDT Inhaled Oxygen Concentration - - Weight 95.1 kg (209 lb 9.6 oz) 03/03/2025 5:37 P M CDT Height 182.9 cm (6' 0.01) 03/03/2025 5:37 PM CD T Body Mass Index 28.42 03/03/2025 5:37 PM CDT Plan of Treatment Health Maintenance Due Date Last Done Comments Depression Screening 1986 Hepatitis C Screening 1986 Varicella Vaccines (1 of 2 - 13+ 2-dose series) 1999 Hepatitis B Screening 2004 Regular Well Visit/Exam 18-64 2004 HPV Vaccines (1 - 3-dose SCD M series) 2013 Covid-19 Vaccine (4 - 2024-2 6 season) 2025 06/26/2021, 09/08/2020, 08/18/2020 Influenza Vaccine (#1) 2025 03/31/2021 DTaP/Tdap/Td Vaccine (7 - Td or Tdap) 11/06/2028 11/06/2018, 01/01/1992, 09/16/1987, Additional history exists Pneumococcal vaccine <65 Completed 03/29/2022, 10/16 Insurance [facility] Care Teams Deputy County Attorney Relationship Specialty Start Date End Date No, Physician PCP - General 05/31/24
--- OUTSIDE RECORDS SUMMARY | 2025-06-10 19:21 | XMS_ITS | Encounter Summary ---
Author Organization [facility] Address [address] [place] [address] Care Team Providers Care Ross Furnace Operator Name Role Phone Jannet Escobedo MD, Jose Chow Primary Care Provider Reason for Visit * Reason Onset Date Comments Courtesy Call 09/12/2019 Encounter Details Date Type Department Care Team (Late st Contact Info) Description 09/12/2019 Telephone [facility] [place] [address] [place] [address] Edita Vigil, RT Courtesy Call Social History Tobacco Use Types Packs/Day Years Used Date Smoking Tobacco: Never Smokeless Tobacco: Never Sex and Gender Information Value Date Recorded Sex Assigned at Not on file Legal Sex Male 4:45 PM BOARD HANDLER Gender Identity Not on file Sexual Orientation Not on file documented as of this encounter Plan of Treatment Not on file documented as of this encounter Visit Diagnoses Not on filedocumented in this encounter Care Teams Ross Furnace Operator Relationship Specialty Start Date End Date Jose Power Jr., MD [address] [facility] [address] [place] [address] PCP - General 09/10/19 documented as of this encounter
[2025-06-10 19:27] VITALS: BP 149/96; PULSE 91; RESP 16; TEMP 36.8; O2SAT 98
[2025-06-10] MEDS: HYDROcodone/acetaminophen (*CRX) 5-325 MG TABLET 1 TAB PO (21:12)
[2025-06-10] MEDS: TETANUS,DIPHTHERIA,AC PERTUSSIS ADULT (0.5 ML) BOOSTRIX IM (21:13)
--- OUTSIDE RECORDS SUMMARY | 2025-06-10 21:17 | XMS_ITS | Encounter Summary ---
Author Organization [facility] Address [address] [place] [address] Support Name Relationship Address Phone Tammi Drake ([facility]) Spouse [address] [place] [address] Care Team Providers Care Cigarette And Filter Chief Inspector Name Role Phone Jannet Escobedo MD, Jose Chow Primary Care Provider Encounter Details Date Type Department Care Team (Late st Contact Info) Description 06/03/2025 Results Follow-Up [facility] - Family Medicine [address] [place] [address] Nati Syed, YVONNE-FAT PURIFICATION WORKER [address] [place] [address] Social History Tobacco Use Types Packs/Day Years Used Date Smoking Tobacco: Former Cigarettes Smokeless Tobacco: Never Alcohol Use Standard Drinks/Week Comments Not Currently 0 (1 standard drink = 0.6 oz pur e alcohol) PHQ-2 Answer Date Recorded Patient Health Questionnaire-2 Score 2 06/02/2025 Sex and Gender Information Value Date Recorded Sex Assigned at Not on file Legal Sex Male 6:17 AM PSYCHIATRIC SECURITY NURSE Gender Identity Not on file Sexual Orientation [...] st Contact Info) Description 09/02/2025 9:40 AM PSYCHIATRIC SECURITY NURSE Office Visit [facility] Family Medicine [address] [place] [address] Nati Syed, YV[place] [id number] [place] [address] documented as of this encounter Visit Diagnoses Not on filedocumented in this encounter Additional Health Concerns Infection Onset Date Last Indicated Resolved Time MRSA Hx Comment:Wound culture 04/30/2017 11/01/2022 documented as of this encounter Care Teams Cigarette And Filter Chief Inspector Relationship Specialty Start Date End Date Jose Power Jr., MD PCP - General Family Medicine 05/09/17 documented as of this encounter
--- OUTSIDE RECORDS SUMMARY | 2025-06-10 21:17 | XMS_ITS | Clinical Summary ---
Author Organization [facility] Address [address] [place] [address] Phone Care Team Providers Care Newspaper Carrier Name Role Phone Jannet Escobedo MD, Jose [...] on file Legal Sex Male 5:31 PM RAIL MAINTENANCE WORKER Gender Identity Not on file Sexual Orientation Not on file Last Filed Vital Signs Vital Sign Reading Time Taken Comments Blood Pressure 127/80 06/28/2021 8:44 PM RAIL MAINTENANCE WORKER Pulse 69 06/28/2021 8:44 PM RAIL MAINTENANCE WORKER Temperature 35.6 C (96.1 F) 06/28/2021 8:44 PM RAIL MAINTENANCE WORKER Respiratory Rate 18 06/28/2021 8:44 PM RAIL MAINTENANCE WORKER Oxygen Saturation 95% 06/28/2021 8:44 PM RAIL MAINTENANCE WORKER Inhaled Oxygen Concentration - - Weight 88.5 kg (195 lb) 06/28/2021 5:00 PM RAIL MAINTENANCE WORKER Height 182.9 cm (6') 06/28/2021 5:00 PM RAIL MAINTENANCE WORKER Body Mass Index 26.45 06/28/2021 5:00 PM RAIL MAINTENANCE WORKER Plan of Treatment Health Maintenance Due Date [...] age to complete this topic Care Teams Newspaper Carrier Relationship Specialty Start Date End Date Jose Power Jr., MD PCP - General Family Medicine 06/28/21
--- OUTSIDE RECORDS SUMMARY | 2025-06-10 21:17 | XMS_ITS | Clinical Summary ---
Author Organization [address] Address [address] [place] [address] Care Team Providers Care Scalemaker Name Role Phone No, Physician Primary Care Provider [phone] Allergies No known active allergies Medications FLUoxetine [...] on file Legal Sex Male 11:06 AM ACCOUNTING MANAGER ASSISTANT CONTROLLER Gender Identity Not on file Sexual Orientation [...] Pneumococcal vaccine <65 Completed 03/29/2022, 10/16 Insurance [facility] Care Teams Scalemaker Relationship Specialty Start Date End Date No, Physician PCP - General 05/31/24
--- OUTSIDE RECORDS SUMMARY | 2025-06-10 21:17 | XMS_ITS | Encounter Summary ---
Author Organization [facility] Address [address] [place] [address] Care Team Providers Care Apparel Machinery Instructor Name Role Phone Jannet Escobedo MD, Jose Chow Primary Care Provider Reason for Visit * Reason Onset Date Comments Courtesy Call 09/12/2019 Encounter Details Date Type Department Care Team (Late st Contact Info) Description 09/12/2019 Telephone [facility] [place] [address] [place] [address] Edita Vigil, RT Courtesy Call Social History Tobacco Use Types Packs/Day Years Used Date Smoking Tobacco: Never Smokeless Tobacco: Never Sex and Gender Information Value Date Recorded Sex Assigned at Not on file Legal Sex Male 4:45 PM INSOLE RASPER Gender Identity Not on file Sexual Orientation Not on file documented as of this encounter Plan of Treatment Not on file documented as of this encounter Visit Diagnoses Not on filedocumented in this encounter Care Teams Apparel Machinery Instructor Relationship Specialty Start Date End Date Jose Power Jr., MD [address] [facility] [address] [place] [address] PCP - General 09/10/19 documented as of this encounter
--- OUTSIDE RECORDS SUMMARY | 2025-06-10 21:18 | XMS_ITS | Clinical Summary ---
Author Organization [facility] Address [address] [place] [address] Support Name Relationship Address Phone Tammi Drake (Formerly [facility]) Spouse [address] [place] [address] Care Team Providers Care Swine Nutritionist Name Role Phone Jannet Escobedo MD, Jose Mackeyodore Primary Care Provider Source Comments [facility],non-owned Affiliates and Associated Physician Practices is amultiple site organization consisting of ambulatory clinics and hospital sitesin [place], [place], [place] and [place]. This disclosure is being madepursuant to the Care Everywhere program and may not contain all information available regarding this patient. Last updated 18.[employer] [facility] Allergies No known active allergies Medications * [...] 06/27/2017 Assessment & Plan (06/02/2025 9:05 AM JOINT CUTTER MACHINE): Stable Continue prozac 40 mg qd Tolerating [...] Albuterol Assessment & Plan (08/08/2022 4:27 PM JOINT CUTTER MACHINE): albuterol Assessment & Plan (03/29/2022 11:23 AM [...] Prozac Assessment & Plan (08/08/2022 4:27 PM JOINT CUTTER MACHINE): Pt on Prozac Assessment & Plan (03/29/2022 [...] Department Care Team Description 06/03/2025 Results Follow-Up [address] [address] Nati Syed APRN-CNP 06/02/2025 8:40 AM JOINT CUTTER MACHINE Office Visit [address] [address] Nati Syed APRN-CNP Moderate episode of recurrent major depressive disorder (HCC) (Primary Dx); Generalized anxiety disorder; Inattention 05/01/2025 Travel 04/16/2025 8:20 AM CDT Office Visit [address] [address] Nati Syed APRN-CNP Routine general medical examination at health care facility (Primary Dx); Moderate episode of recurrent major depressive disorder (HCC); Generalized anxiety disorder; Mild intermittent asthma without complication (HCC); Inattention; Hypertriglyceridemia; MSH6-related Mcguire syndrome (HNPCC5) from Last 3 Months Immunizations Immunization Administration Dates Next Due [employer] primary monoval ent 12+ yr 0.3mL Purple [...] on file Legal Sex Male 6:17 AM JOINT CUTTER MACHINE Gender Identity Not on file Sexual Orientation Straight 11/26/2021 1: 27 PM CDT Occupation Industry Job Start Date Job End Date sales Not on file Not on file Not on file Last Filed Vital Signs Vital Sign Reading Time Taken Comments Blood Pressure 122/78 06/02/2025 8:41 AM JOINT CUTTER MACHINE Pulse 76 06/02/2025 8:41 AM JOINT CUTTER MACHINE Temperature 36.1 C (97 F) 12/16/2024 7:11 AM CDT Respiratory Rate 19 12/16/2024 8:35 AM CDT Oxygen Saturation 97% 06/02/2025 8:41 AM JOINT CUTTER MACHINE Inhaled Oxygen Concentration - - Weight 96.3 kg (212 lb 6.4 oz) 06/02/2025 8:41 A M JOINT CUTTER MACHINE Height 182.9 cm (6') 06/02/2025 8:41 AM JOINT CUTTER MACHINE Body Mass Index 28.81 06/02/2025 8:41 AM JOINT CUTTER MACHINE Plan of Treatment Upcoming Encounters Date Type Department Care Team (Late st Contact Info) Description 09/02/2025 9:40 AM JOINT CUTTER MACHINE Office Visit [facility] - Family Medicine [address] [place] [address] Nati Syed, NUCLEAR MEDICINE TECHNOLOGIST-PERISHABLE FRUIT INSPECTOR [address] [place] [address] Health Maintenance Due Date Last [...] W AUTO DIFFERENTIAL Routine 06/02/2025 9:06 AM JOINT CUTTER MACHINE Hypertriglyceridemi a TSH REFLEX FREE T4 Routine 06/02/2025 9: 06 AM JOINT CUTTER MACHINE Hypertriglyceridemi a HEMOGLOBIN A1C Routine 06/02/2025 9:06 AM JOINT CUTTER MACHINE Hypertriglyceridemi a LIPID PROFILE Routine 06/02/2025 9:06 AM JOINT CUTTER MACHINE Hypertriglyceridemi a COMPREHENSIVE METABOLIC PANEL Routine 06/02/2025 9:06 AM JOINT CUTTER MACHINE Hypertriglyceridemi a ENDOSCOPY, COLON, DIAGNOSTIC Routine 12/16/2024 [...] TSH REFLEX FREE T4 (06/02/2025 9:06 AM JOINT CUTTER MACHINE) TSH 1.255 0.350 - 4.940 uIU/mL [facility] ACCOUNT BILL Blood BLOOD SPECIMEN / Unknown 06/02/2025 9:06 AM JOINT CUTTER MACHINE 06/02/2025 Narrative [facility] ACCOUNT BILL - 06/02/2025 5:09 PM JOINT CUTTER MACHINE Performed at: [address] [place] [id number] Trackman: [address], Phone: [phone] us Nati Syed NUCLEAR MEDICINE TECHNOLOGIST-PERISHABLE FRUIT INSPECTOR LAB - CHEMISTRY ORDERA BLES Final Result [facility] ACCOUNT BILL [address] [place] [address] * HEMOGLOBIN A1C (06/02/2025 9:06 AM JOINT CUTTER MACHINE) [facility] Hemoglobin A1c 5.4 <5.7 % [facility] [...] (HbF) exceeds 5% in the specimen. The Pelagonity assay for the measurement of HbA1c is a [facility] Glycohemoglobin Standardization Program (NGSP) certi fied method. Blood BLOOD SPECIMEN / Unknown 06/02/2025 9:06 AM JOINT CUTTER MACHINE 06/02/2025 Narrative [facility] ACCOUNT BILL - 06/02/2025 5:09 PM JOINT CUTTER MACHINE Performed at: 01 - [facility] [address] [place], [place] [id number] Trackman: [address], Phone: [phone] us Nati Chambers Kunal NUCLEAR MEDICINE TECHNOLOGIST-PERISHABLE FRUIT INSPECTOR LAB - CHEMISTRY ORDERA BLES Final Result [facility] ACCOUNT BILL [address] [place] [address] * CBC WITH DIFFERENTIAL (06/02/2025 9:06 AM JOINT CUTTER MACHINE) WBC 7.4 4.0 - 10.7 x10E9/L [facility] [...] BLOOD SPECIMEN / Unknown 06/02/2025 9:06 AM JOINT CUTTER MACHINE 06/02/2025 Narrative [facility] ACCOUNT BILL - 06/02/2025 3:10 PM JOINT CUTTER MACHINE Performed at: [address] [place] [id number] Trackman: [address], Phone: [phone] us Nati Chambers Syed NUCLEAR MEDICINE TECHNOLOGIST-PERISHABLE FRUIT INSPECTOR LAB - HEMATOLOGY ORDER ROSIBEL Final Result [facility] ACCOUNT BILL [address] [place] [address] * (ABNORMAL) COMPREHENSIVE METABOLIC PANEL (06/02/2025 9:06 AM JOINT CUTTER MACHINE) Glucose 100(H) 70 - 99 mg/dL [facility] ACCOUNT BILL BUN 10 5.3 - 18.7 mg/dL [facility] ACCOUNT BILL Creatinine 1.04 0.60 - 1.20 mg/dL [facility] ACCOUNT BILL eGFR by CKD-EPI >90 >=90 mL/min/1.7 3 m2 [facility] ACCOUNT BILL Comment: Estimated Glomerular Filtration Rate (eGFR) calculated using the CKD-EPI Creatinine Equation (2020), per the National [place] [employer] and [place] [employer] recommend ations. Sodium 140 [...] BLOOD SPECIMEN / Unknown 06/02/2025 9:06 AM JOINT CUTTER MACHINE 06/02/2025 Narrative [facility] ACCOUNT BILL - 06/02/2025 5:09 PM JOINT CUTTER MACHINE Performed at: [address] [place] [id number] Trackman: [address], Phone: [phone] us Natikalpana Chambers Syed NUCLEAR MEDICINE TECHNOLOGIST-PERISHABLE FRUIT INSPECTOR LAB - CHEMISTRY ORDERA BLES Final Result [facility] ACCOUNT BILL [address] [place] [address] * (ABNORMAL) LIPID PROFILE (06/02/2025 9:06 AM JOINT CUTTER MACHINE) Cholesterol 179 <200 mg/dL [facility] ACCOUNT BILL Triglycerides 220(H) <150 mg/dL [facility] ACCOUNT BILL HDL Cholesterol 30(L) >40 mg/dL [facility] ACCOUNT BILL VLDL Calculated 44(H) <=30 mg/dL [facility] ACCOUNT BILL LDL Calculated 105 <130 mg/dL [facility] ACCOUNT BILL Comment:LDL is calculated us ing the Friedewald equation. Blood BLOOD SPECIMEN / Unknown 06/02/2025 9:06 AM JOINT CUTTER MACHINE 06/02/2025 Narrative [facility] ACCOUNT BILL - 06/02/2025 5:09 PM JOINT CUTTER MACHINE Performed at: [address] [place] [id number] Trackman: [address], Phone: [phone] us Natikalpana Harrisonmartell Armstrongn NUCLEAR MEDICINE TECHNOLOGIST-PERISHABLE FRUIT INSPECTOR LAB - CHEMISTRY ORDERA BLES Final Result Performing Organization Address City/[facility]/ZIP Co de Phone Number [facility] ACCOUNT BILL [address] [place] [address] * Endoscopy, Colon, Diagnostic (12/16/2024 7:05 AM CDT) Report Endoscopy POC _ Patient Name: Mauro Drake Procedure Date: 12/16/2024 7:05 AM Date of : 1985 Admit Type: Outpatient Age: 39 Gender: Male Ethnicity: Not or Race: White Attending MD: Gaudencio Silva MD, [id number] _ Procedure: Colonoscopy Indications: Mcguire Syndrome Providers: [...] as scheduled Procedure Code(s): --- Professional --- 23007, Colonoscopy, flexible; with removal of tumor(s), polyp(s), or other lesion(s) by snare technique --- Technical --- 44162, Colonoscopy, flexible; with removal of tumor(s), polyp(s), or other lesion(s) by snare technique Diagnosis Code(s): --- Professional --- D12.4, Benign neoplasm of descending colon Z15.09, Genetic susceptibility to other malignant neoplasm --- Technical --- D12.4, Benign neoplasm of descending colon Z15.09, Genetic susceptibility to other malignant neoplasm CPT copyright 2020 [employer]. All rights reserved. The codes documented in this report are preliminary and upon hospital coder review may be revised to meet current compliance requirements. Gaudencio Silva MD 12/16/2024 7:45:59 AM This report has been signed electronically. Number of Addenda: 0 Note Initiated On: 12/16/2024 7:05 AM [facility] 12/16/2024 7:05 AM CDT Narrative Procedure Note Gaudencio Silva MD - 12/16/2024 7:47 AM CDT Colonoscopy Desc colon polyp/adenoma resected Rpt 1 yr with EGD Derm as scheduled D/w Mauro us Gaudencio Silva MD GI PROCEDURE ORDERABLES Edited R esult - Final [facility] * EGD (10/24/2023 12:43 PM CDT) Report Endoscopy POC __ _ Patient Name: Mauro Drake Procedure Date: 10/24/2023 12:43 PM Date of : 1985 Admit Type: Outpatient Age: 38 Gender: Male Ethnicity: Not or Race: White Attending MD: Gaudencio Silva MD, [id number] __ _ Procedure: Upper GI endoscopy Indications: Screening procedure Providers: Gaudencio Silva MD (Doctor), Kera Spence RN, Estela David, STEVEN, Maya Granados, STEVEN, Pauline Dewitt, Python Web Developer Patient Profile: 38M presents for screening for [...] for surveillance. Procedure Code(s): --- Professional --- 22478, Esophagogastroduode noscopy, flexible, transoral; diagnostic, including collection of specimen(s) by brushing or washing, when performed (separate procedure) --- Technical --- 92243, Esophagogastroduode noscopy, flexible, transoral; diagnostic, including collection of specimen(s) by brushing or washing, when performed (separate procedure) Diagnosis Code(s): --- Professional --- Z13.810, Encounter for screening for upper gastrointestinal disorder --- Technical --- Z13.810, Encounter for screening for upper gastrointestinal disorder CPT copyright 2020 [employer]. All rights reserved. The codes documented in this report are preliminary and upon hospital coder review may be revised to meet current compliance requirements. Gaudencio Silva MD 10/24/2023 1:22:10 PM This report has been signed electronically. Number of Addenda: 0 Note Initiated On: 10/24/2023 12:43 PM [facility] 10/24/2023 12:4 3 PM CDT Narrative Procedure Note Gaudencio Silva MD - 10/24/2023 1:22 PM CDT Normal EGD Rpt 2 yrs Proceed to colon us Gaudencio Silva MD GI PROCEDURE ORDERABLES Edited R esult - Final [facility] * HEPATITIS C ANTIBODY (03/28/2023 8:51 AM CDT) Hepatitis C Antibody Non Reactive Non Reactive [facility] ACCOUNT BILL Comment: Non Reactive - Antibodies to Hepatitis C virus (HCV) were no t detected, result does not exclude early acute HCV infection. Blood BLOOD SPECIMEN / Unknown 03/28/2023 8:51 AM CDT 03/28/2023 Narrative Resulting Agency Comment Lab Testing performed at: [facility] [address] [facility] [id number] us Jose Power Jr., MD LAB - CHEMISTR Y ORDERABLES Final Result [facility] ACCOUNT BILL [address] [place] [address] * HIV-1 HIV-2 ANTIGEN/ANTIBODY W RFLX (05/09/2017 11:05 AM CDT) HIV Screen 4th Generation w Reflex Non Reactive Non Reactive [facility] ACCOUNT BILL Blood BLOOD SPECIMEN / Unknown 05/09/2017 11:05 AM CDT 05/09/2017 Narrative Resulting Agency Comment [facility] [address] [facility] [phone] us Jose Power Jr., MD LAB - SEROLOGY ORDERABLES Final Result Performing Organization Address City/[facility] de Phone Number [facility] ACCOUNT BILL [address] [place] [address] from Last 3 Months or Most Recently Relevant to Health Maintenance Additional Health Concerns Infection Onset Date Last Indicated MRSA Hx Comment:Wound culture 04/30/2017 11/01/2022 Insurance [facility] Address: [address] [address] Care Teams Swine Nutritionist Relationship Specialty Start Date End Date Jose Power Jr., MD PCP - General Family Medicine 05/09/17
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
[2025-06-10] MEDS: WATER, STERILE FOR INJECTION 10 ML VIAL XX (22:17)
[2025-06-10 22:28] VITALS: BP 143/94; PULSE 77; RESP 18; O2SAT 97
[2025-06-10 22:42] LABS: Hematocrit 40.3 % (42.0-52.0); Hemoglobin 14.0 g/dL (14.0-18.0); Immature Granulocyte Percent A 0.6 % (0-0.5); Lymphocytes Absolute Auto 4.20 K/mm3 (0.9-3.2); Mean Corpuscular HGB Conc 34.7 g/dl (32-36); Mean Corpuscular Hemoglobin 29.8 pg (26-34); Mean Corpuscular Volume 85.7 fl (80-100); Nucleated Red Blood Cells Absolute Auto 0.000 K/mm3 (0.0-0.012); Nucleated Red Blood Cells Perc 0.0 % (0.0-0.2); Platelet Count Result 250 k/mm3 (150-375); Red Blood Count 4.70 M/mm3 (4.6-6.20); White Blood Count 10.2 K/mm3 (4.5-10.0)
[2025-06-10 22:46] LABS: Anion Gap 9 mmol/L (4-12); Blood Urea Nitrogen 15 mg/dL (9-20); Calcium 9.2 mg/dL (8.4-10.2); Carbon Dioxide 23 mmol/L (22-30); Chloride 104 mmol/L (98-107); Estimated CRCL calculation 95 ml/min; Estimated Glomerular Filt Rate > 60; Glucose 117 mg/dL (65-110); Potassium 3.7 mmol/L (3.4-5.0); Sodium 136 mmol/L (137-145)
[2025-06-10] MEDS: MORPHINE SULFATE (*CRX) 4 MG/ML INJ IV PUSH (23:15)
[2025-06-10 23:45] VITALS: BP 145/105; PULSE 74; RESP 18; O2SAT 96
== END 2025-06-10 23:47 | disposition home or self-care (01) ==
PROVIDERS: Emergency Provider Student in an Organized Health Care Education/Training Program
DX: S62.633B Displaced fracture of distal phalanx of left middle finger, initial encounter for open fracture (principal); S64.495A Injury of digital nerve of left ring finger, initial encounter; W26.0XXA Contact with knife, initial encounter; Z23 Encounter for immunization
CPT/HCPCS: 12002; 29130; 36415; 73130; 80048; 85025; 86850; 86900; 86901; 90471; 90715; 96374; 96375; 99284; J0690; A9270; J2270

== ENCOUNTER 2025-06-24 15:05 | Outpatient (CLI) | payer BC, SELFPAY ==
--- NOTE | ~2025-06-24 | XR_ITS ---
EXAMINATION: XR finger 3rd LT min 2V, 06/24/2025 15:18 INSTITUTE SCIENTIST HISTORY: S62.639B - Displaced fracture of distal phalanx of unspec... COMPARISON: No comparisons available. Findings: Remote fracture distal aspect distal phalanx, no acute fracture is identified No significant degenerative changes. Soft tissues unremarkable. Impression: No acute fracture or malalignment. Reviewed, dictated and finalized at location P. ITUTE SCIENTIST Impression: No acute fracture or malalignment.
== END 2025-06-24 15:06 | disposition home or self-care (01) ==
PROVIDERS: Visit Provider Physician Assistant Surgical
DX: S62.639B Displaced fracture of distal phalanx of unspecified finger, initial encounter for open fracture (principal); X58.XXXA Exposure to other specified factors, initial encounter
CPT/HCPCS: 73140